=== PATIENT | female | born 1995 | race Caucasian/White ===

== ENCOUNTER 2016-05-15 15:19 | Emergency (ER) | payer OTHER ==
[~2016-05-15] VITALS: Ht 175.3 cm; Wt 122.5 kg
[2016-05-15 15:22] VITALS: BP 130/72; PULSE 92; RESP 16; TEMP 98.6; O2SAT 98
--- NOTE | 2016-05-15 15:57 | PD ---
HPI Chief Complaint: Dizziness Time Seen by Provider: 15:50 Travel History International Travel<30 days: No Contact w/Intl Traveler<30days: No Traveled to known affect area: No History of Present Illness HPI 20-year-old female here for evaluation of dizzy episodes after a head injury that occurred yesterday. The patient reports that she was ice skating yesterday when she fell backwards striking the back of her head on the ground. She denies LOC. She now complains of some posterior head pain that is worse with palpation as well as some right-sided neck pain. No visual disturbances. No paresthesias or motor deficits. No vomiting. She has had a couple episodes of feeling dizzy. PFSH Past Medical History ?: Not Social History Tobacco Use: No Allergies-Medications (Allergen,Severity, Reaction): Coded Allergies: Penicillin (Verified Allergy, Severe, Hives, 05/15/16) Uncoded Allergies: mthfr generic mutation (Allergy, Severe, Anaphylaxis, 05/15/16) mi Reported Meds & Prescriptions Reported Meds & Active Scripts Active Bactrim DS (Sulfamethoxazole-Trimethoprim) 800-160 Mg Tab 1 Tab PO BID Review of Systems Except as stated in HPI: all other systems reviewed are Neg Physical Exam Narrative GENERAL: Well-developed, well-nourished, comfortable, no acute distress. SKIN: Focused skin assessment warm/dry. No lacerations, abrasions, or ecchymosis. HEAD: Normocephalic. Small posterior scalp hematoma that is moderately tender. No craniofacial step-offs. EYES: Pupils equal, round, 3 mm, reactive to light. No scleral icterus. No injection or drainage. ENT: No nasal bleeding or discharge. Mucous membranes pink and moist. NECK: Trachea midline. No JVD. No midline cervical spinous step-off or tenderness. There is mild right lateral neck tenderness. CARDIOVASCULAR: Regular rate and rhythm. RESPIRATORY: No accessory muscle use. Clear to auscultation. Breath sounds equal bilaterally. MUSCULOSKELETAL: No obvious deformities. No clubbing. No cyanosis. No edema. NEUROLOGICAL: Awake and alert. No obvious cranial nerve deficits. Motor grossly within normal limits. Normal speech. No focal deficits. PSYCHIATRIC: Appropriate mood and affect; insight and judgment normal. Data Data Last Documented VS Vital Signs Date Time Temp Pulse Resp B/P Pulse Ox O2 Delivery O2 Flow Rate FiO2 05/15/16 16:05 78 16 123/68 100 Room Air 05/15/16 15:22 98.6 Orders Complete Blood Count With Diff (05/15/16 15:53) Comprehensive Metabolic Panel (05/15/16 15:53) Urinalysis - C+S If Indicated (05/15/16 15:53) Iv Access Insert/Monitor (05/15/16 15:53) Ecg Monitoring (05/15/16 15:53) Oximetry (05/15/16 15:53) Sodium Chloride 0.9% Flush (Ns Flush) (05/15/16 16:00) Electrocardiogram (05/15/16 15:53) Ed Urine Pregnancytest Poc (05/15/16 15:53) Ct Brain W/O Iv Contrast(Rout) (05/15/16 ) Ct Cerv Spine W/O Contrast (05/15/16 ) Urine Culture (05/15/16 17:20) Sulfamet-Trimeth Ds 800-160 Mg (Bactrim (05/15/16 18:30) Labs Laboratory Tests Test 05/15/16 05/15/16 16:00 17:20 Sodium Level 140 MEQ/L Potassium Level 3.9 MEQ/L Chloride Level 108 MEQ/L Carbon Dioxide Level 22.9 MEQ/L Anion Gap 9 MEQ/L Blood Urea Nitrogen 12 MG/DL Creatinine 0.74 MG/DL Estimat Glomerular Filtration 99 ML/MIN Rate Random Glucose 97 MG/DL Calcium Level 8.8 MG/DL Total Bilirubin 0.1 MG/DL Aspartate Amino Transf 14 U/L (AST/SGOT) Alanine Aminotransferase 18 U/L (ALT/SGPT) Alkaline Phosphatase 69 U/L Total Protein 7.3 GM/DL Albumin 3.6 GM/DL White Blood Count 11.2 TH/MM3 Red Blood Count 4.77 MIL/MM3 Hemoglobin 12.4 GM/DL Hematocrit 38.2 % Mean Corpuscular Volume 80.1 FL Mean Corpuscular Hemoglobin 26.0 PG Mean Corpuscular Hemoglobin 32.4 % Concent Red Cell Distribution Width 14.0 % Platelet Count 282 TH/MM3 Mean Platelet Volume 8.1 FL Neutrophils (%) (Auto) 68.9 % Lymphocytes (%) (Auto) 20.7 % Monocytes (%) (Auto) 6.5 % Eosinophils (%) (Auto) 3.7 % Basophils (%) (Auto) 0.2 % Neutrophils # (Auto) 7.7 TH/MM3 Lymphocytes # (Auto) 2.3 TH/MM3 Monocytes # (Auto) 0.7 TH/MM3 Eosinophils # (Auto) 0.4 TH/MM3 Basophils # (Auto) 0.0 TH/MM3 CBC Comment DIFF FINAL Differential Comment Urine Color LIGHT-YELLOW Urine Turbidity HAZY Urine pH 5.5 Urine Specific [place] 1.010 Urine Protein NEG mg/dL Urine Glucose (UA) NEG mg/dL Urine Ketones NEG mg/dL Urine Occult Blood MOD Urine Nitrite POS Urine Bilirubin NEG Urine Urobilinogen LESS THAN 2.0 MG/DL Urine Leukocyte Esterase LARGE Urine RBC 11 /hpf Urine WBC 46 /hpf Urine Squamous Epithelial 3 /hpf Cells Urine Bacteria OCC /hpf Urine Mucus FEW /lpf Microscopic Urinalysis Comment CULTURE INDICATED MDM Medical Decision Making Medical Screen Exam Complete: Yes Emergency Medical Condition: Yes Interpretation(s) EKG: Sinus, rate 77, normal axis, normal intervals, no acute ischemic abnormality. Differential Diagnosis Intracranial trauma, cervical spine injury, concussion, anemia, electrolyte abnormality, UTI Narrative Course Vital signs are within normal limits. CBC is unremarkable. CMP is unremarkable. UA shows hazy urine, moderate occult blood, positive nitrites, large leukocyte esterase, 11 rbc's, 46 wbc's, occasional bacteria. CT head: Normal examination for patient of this age. CT cervical spine: CONCLUSION: 1. No acute findings. 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 The patient was made aware of all findings. She is resting comfortably. She will be started on Bactrim for her UTI. She is stable for discharge home with outpatient follow-up with a primary care physician this week. She was informed on when to return to the emergency department. She verbalizes understanding and agreement with plan. Diagnosis Primary Impression: UTI (urinary tract infection) Qualified Code: N39.0 - Urinary tract infection with hematuria, site unspecified Additional Impressions: Closed head injury Qualified Code: S09.90XA - Closed head injury, initial encounter Dizziness Referrals: Primary Care Physician 3 days Additional Instructions: Follow-up with a primary care physician this week. Take antibiotic as prescribed. Return to the emergency department for worsening symptoms or any other concerns. Scripts Sulfamethoxazole-Trimethoprim (Bactrim DS)800-160 Mg Tab1 Tab PO BID #6 TAB Ref 0 Prov:Bobby Sawyer MD 05/15/16 Disposition: 01 DISCHARGE HOME Condition: Stable Bobby Sawyer MD May 15, 2016 15:57
[2016-05-15 16:00] VITALS: RESP 16; O2SAT 98
[2016-05-15] MEDS ORDERED: SODIUM CHLORIDE 0.9% FLUSH 10 ML FLUSH IV FLUSH PRN (16:00)
[2016-05-15 16:05] VITALS: BP 123/68; PULSE 78; RESP 16; O2SAT 100
[2016-05-15 16:31] LABS: AUTOMATED NEUTROPHIL # 7.7 TH/MM3 (1.8-7.7); BASOPHIL % 0.2 % (0.0-2.0); EOSINOPHIL # 0.4 TH/MM3 (0-0.4); EOSINOPHIL % 3.7 % (0.0-4.0); HEMATOCRIT 38.2 % (35.0-46.0); HEMO FLAGS DIFF FINAL; LYMPH % 20.7 % (9.0-44.0); LYMPHOCYTE # 2.3 TH/MM3 (1.0-4.8); MEAN CELL VOLUME 80.1 FL (80.0-100.0); MEAN CORPUSCULAR HGB CONC 32.4 % (32.0-36.0); MONO % 6.5 % (0.0-8.0); NEUT % 68.9 % (16.0-70.0); PLATELET COUNT 282 TH/MM3 (150-450); RED BLOOD COUNT 4.77 MIL/MM3 (4.00-5.30); WHITE BLOOD COUNT 11.2 TH/MM3 (4.0-11.0)
[2016-05-15 16:42] LABS: ANION GAP 9 MEQ/L (5-15); AST (GOT) 14 U/L (15-37); BICARBONATE 22.9 MEQ/L (21.0-32.0); BLOOD UREA NITROGEN 12 MG/DL (7-18); CHLORIDE 108 MEQ/L (98-107); GLOMERULAR FILTRATION RATE 99 ML/MIN (>89); POTASSIUM 3.9 MEQ/L (3.5-5.1); SODIUM (NA) 140 MEQ/L (136-145)
[2016-05-15 16:45] LABS: ALKALINE PHOSPHATASE 69 U/L (45-117); ALT (GPT) 18 U/L (10-53); TOTAL BILIRUBIN ADULT 0.1 MG/DL (0.2-1.0)
[2016-05-15 17:48] LABS: BACTERIA, URINE OCC /hpf; BLOOD, URINE MOD (NEG); COMMENT (UR) CULTURE INDICATED; CULTURE IF INDICATED CULTURE INDICATED; GLUCOSE,URINE NEG (NEG); KETONE, URINE NEG (NEG); MUCUS URINE FEW /lpf (OCC); NITRITE,URINE POS (NEG); PH, URINE 5.5 (5.0-8.5); SQUAMOUS EPITHELIAL CELL URINE 3 /hpf (0-5); URINE COLOR LIGHT-YELLOW (YELLW/STRAW)
[2016-05-15] MEDS ORDERED: SULFAMETHOXAZOLE-TRIMETHOPRIM DS 800-160 MG TAB PO ONE (18:30)
--- NOTE | 2016-05-15 19:02 | RADRPT ---
EXAM DATE/TIME: 05/15/2016 17:54 [facility] COMPARISON: No previous studies available for comparison. INDICATIONS : Trauma; patient fell while ice skating. RADIATION DOSE: 36.22 CTDIvol (mGy) MEDICAL HISTORY : None SURGICAL HISTORY : None. ENCOUNTER: Initial ACUITY: 1 day PAIN SCALE: 5/10 LOCATION: cranial TECHNIQUE: Multiple contiguous axial images were obtained of the head. Using automated exposure control and adj ustment of the mA and/or kV according to patient size, radiation dose was kept as low as reasonably a chievable to obtain optimal diagnostic quality images. FINDINGS: CEREBRUM: The ventricles are normal for age. No evidence of midline shift, mass lesion, hemorrhage or acute in farction. No extra-axial fluid collections are seen. POSTERIOR FOSSA: The cerebellum and brainstem are intact. The 4th ventricle is midline. The cerebellopontine angle i s unremarkable. EXTRACRANIAL: The visualized portion of the orbits is intact. SKULL: The calvaria is intact. No evidence of skull fracture. CONCLUSION: Normal examination for a patient of this age. Toño Estes MD on May 15, 2016 at 19:00 Board Certified Radiologist. This report was verified electronically.
--- NOTE | 2016-05-15 19:06 | RADRPT ---
EXAM DATE/TIME: 05/15/2016 17:54 [facility] COMPARISON: No previous studies available for comparison. INDICATIONS : Trauma; patient fell while ice-skating. RADIATION DOSE: 20.05 CTDIvol (mGy) MEDICAL HISTORY : None SURGICAL HISTORY : None. ENCOUNTER: Initial ACUITY: 1 day PAIN SCALE: 5/10 LOCATION: neck TECHNIQUE: Volumetric scanning of the cervical spine was performed. Multiplanar reconstructions in the sagittal, coronal and oblique axial planes were performed. Using automated exposure control and adjustment o f the mA and/or kV according to patient size, radiation dose was kept as low as reasonably achievable to obtain optimal diagnostic quality images. FINDINGS: VERTEBRAE: Normal vertebral body height. ALIGNMENT: No evidence of subluxation. C2-C3: The bony spinal canal is normal in size. No evidence of disc bulge or herniation. The neural forami na are bilaterally patent. C3-C4: The bony spinal canal is normal in size. No evidence of disc bulge or herniation. The neural forami na are bilaterally patent. C4-C5: The bony spinal canal is normal in size. No evidence of disc bulge or herniation. The neural forami na are bilaterally patent. C5-C6: The bony spinal canal is normal in size. No evidence of disc bulge or herniation. The neural forami na are bilaterally patent. C6-C7: The bony spinal canal is normal in size. No evidence of disc bulge or herniation. The neural forami na are bilaterally patent. C7-T1: The bony spinal canal is normal in size. No evidence of disc bulge or herniation. The neural forami na are bilaterally patent. CONCLUSION: 1. No acute findings. 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 Toño Estes MD on May 15, 2016 at 19:01 Board Certified Radiologist. This report was verified electronically.
[2016-05-15] MEDS ORDERED: BACT800T5 PO (19:11)
--- NOTE | 2016-05-16 10:41 | EKG ---
Date Performed: 05/15/2016 Time Performed: 15:58:49 PTAGE: 20 years EKG: Sinus rhythm WITH SINUS ARRHYTHMIA NORMAL ECG NO PREVIOUS TRACING DOCTOR: Jonathan Snyder Interpretating Date/Time 05/16/2016 10:37:29
== END 2016-05-15 19:51 | disposition home or self-care (01) ==
LOC: NEPA 15:19
DX: R51 Headache (principal); N39.0 Urinary tract infection, site not specified; B96.20 Unspecified Escherichia coli [E. coli] as the cause of diseases classified elsewhere; S00.03XA Contusion of scalp, initial encounter; W01.0XXA Fall on same level from slipping, tripping and stumbling without subsequent striking against object, initial encounter; Z91.81 History of falling; Y93.21 Activity, ice skating; Y92.838 Other recreation area as the place of occurrence of the external cause; Y99.9 Unspecified external cause status
CPT/HCPCS: 70450; 72125; 80053; 81001; 84703; 85025; 87077; 87086; 87186; 93005